=== PATIENT | male | born 1960 | race Two or more races ===

== ENCOUNTER 2023-10-19 11:19 | Emergency (ER) | payer OTHER ==
[~2023-10-19] VITALS: Ht 157.5 cm; Wt 54.4 kg
[2023-10-19] MEDS ORDERED: ZESTRIL20 MG PO (12:41)
[2023-10-19] MEDS ORDERED: ACETAMINOPHEN 325 MG TABLET PO STA (13:52)
[2023-10-19 14:28] LABS: HEMATOCRIT 38.9 % (39.0-48.0); HEMOGLOBIN 13.3 g/dL (13-16.00); MEAN CELL VOLUME 99.3 fL (80.0-100.00); MEAN CORPUSCULAR HGB CONC 34.2 g/dl (32.0-36.0); PLATELET COUNT 141 K/uL (150-450); RED BLOOD COUNT 3.92 M/uL (4.00-6.00); RED CELL DISTRIBUTION WIDTH 14.1 % (11.5-14.5)
[2023-10-19 14:54] LABS: CALCIUM 9.6 mg/dL (8.5-10.1); CREATININE SERUM 1.27 mg/dL (0.70-1.30); GFR 57.28; POTASSIUM 3.95 mEq/L (3.5-5.1)
[2023-10-19 15:20] LABS: PH,URINE 5.5 (5.0-8.0); URINE APPEARANCE Cloudy; URINE BILIRRUBIN Negative (NEGATIVE); URINE BLOOD Moderate; URINE COLOR Dark Yellow; URINE LEUKOCYTE Negative; URINE NITRATE Negative
[2023-10-19 15:24] LABS: URINE BACTERIA 45.3 uL (0.0-1933); URINE EPITHELIAL CELLS 11.2 uL (0.0-38.8); URINE RBC 3.4 uL (0.0-20.8)
[2023-10-19 16:05] LABS: URINE CRYSTALS NEGATIVE /HPF; URINE GLUCOSE 100 MG/DL (NEGATIVE); URINE PROTEIN 100 (NEGATIVE)
[2023-10-19 16:06] LABS: URINE MUCUS MODERATE; URINE YEAST NEGATIVE /hpf
== END 2023-10-19 18:09 | disposition home or self-care (01) ==
LOC: ER 11:19
PROVIDERS: General Practice
DX: G25.0 Essential tremor (principal); Z20.822 Contact with and (suspected) exposure to COVID-19

== ENCOUNTER 2023-11-03 17:11 | Emergency (ER) | payer OTHER ==
[~2023-11-03] VITALS: Ht 157.5 cm; Wt 54.4 kg
[~2023-11-03 17:11] MED LIST: ZESTRIL20 MG PO
[2023-11-03 17:57] LABS: HEMATOCRIT 39.7 % (39.0-48.0); HEMOGLOBIN 13.3 g/dL (13-16.00); MEAN CELL VOLUME 99.4 fL (80.0-100.00); MEAN CORPUSCULAR HEMOGLOBIN 33.3 pg (27.00-32.0); MEAN CORPUSCULAR HGB CONC 33.5 g/dl (32.0-36.0); PLATELET COUNT 475 K/uL (150-450); RED BLOOD COUNT 3.99 M/uL (4.00-6.00); RED CELL DISTRIBUTION WIDTH 14.6 % (11.5-14.5)
[2023-11-03 18:14] LABS: ALBUMIN 3.1 gm/dL (3.4-5.0); BILIRUBIN TOTAL 0.32 mg/dL (0.3-1.2); CALCIUM 9.1 mg/dL (8.5-10.1); CREATININE SERUM 1.01 mg/dL (0.70-1.30); GFR 74.61; GLOBULINA 4.7 G/DL (2.4-3.5); POTASSIUM 3.86 mEq/L (3.5-5.1); TOTAL PROTEIN 7.8 gm/dL (6.4-8.2)
== END 2023-11-03 19:15 | disposition home or self-care (01) ==
LOC: ER 17:12
PROVIDERS: General Practice
DX: R07.9 Chest pain, unspecified (principal); R42 Dizziness and giddiness